=== PATIENT | female | born 1995 | race Caucasian/White ===

== ENCOUNTER 2019-03-02 11:31 | Emergency (ER) | payer OTHER ==
[~2019-03-02] VITALS: Ht 157.5 cm; Wt 73.5 kg
[2019-03-02 11:54] VITALS: BP 130/83; PULSE 75; TEMP 98.3
== END 2019-03-02 12:17 | disposition home or self-care (01) ==
LOC: COL.ER 11:31
DX: T76.21XA Adult sexual abuse, suspected, initial encounter (principal)

== ENCOUNTER → 2019-03-02 | Outpatient (REF) | LOC: LDRO 18:46 | DX: T74.21XA Adult sexual abuse, confirmed, initial encounter (principal) ==

== ENCOUNTER → 2019-03-02 | Outpatient (CLI) | payer OTHER | LOC: LDRO 18:40 | DX: T74.21XA Adult sexual abuse, confirmed, initial encounter (principal) ==